=== PATIENT | female | born 1955 | race Caucasian/White ===

== ENCOUNTER → 2017-02-26 | Outpatient (CLI) | payer BC ==
--- NOTE | 2017-02-26 13:04 | XR ---
EXAM TYPE: LUMBAR SPINE X RAY SERIES COMPARISON: NONE HISTORY: Back pain TECHNIQUE: 3 views are submitted. FINDINGS: Alignment is anatomic. The pedicles are intact. The transverse processes are intact. Severe degene rative disc disease L-1 through L5. Multilevel facet arthropathy. Grade 1 anterolisthesis L4 on L5. S light scoliotic curvature. Significant retained fecal debris throughout the colon. Sclerotic density may represent a calcificati on overlying the right sacrum or small bone island. IMPRESSION: 1. Severe multilevel degenerative disc disease with grade 1 anterolisthesis L4 on L5. Correlate with MRI as clinically warranted for canal stenosis.
== END | disposition home or self-care (01) ==
LOC: RADXRMAIN 12:27
PROVIDERS: ATTEND Internal Medicine
DX: M51.36 Other intervertebral disc degeneration, lumbar region (principal)
CPT/HCPCS: 72100

== ENCOUNTER → 2017-09-20 | Outpatient (CLI) | payer BC ==
--- NOTE | 2017-09-20 17:51 | BD ---
EXAMINATION TYPE: MG DEXA axial skeleton. DATE OF EXAM: 09/20/2017 COMPARISON: 03.01.2010 CLINICAL HISTORY: PT IS A 62 YR OLD FEMALE....ICD-10 CODE: M81.0 OSTEOPOROSIS.. Height: 62.3 Weight: 243 FRAX RISK QUESTIONS: Alcohol (3 or more units per day): NO Family History (Parent hip fracture): NO Glucocorticoids (More than 3mos): NO (Ex: prednisone, prednisolone, methylprednisolone, dexamethasone, and hydrocortisone). History of Fracture in Adulthood: NO Secondary Osteoporosis: YES 1. Type 1 Diabetes: NO 2. Hyperthyroidism: NO 3. Menopause before 45: YES 4. Malnutrition: NO 5. Chronic liver disease: NO Rheumatoid Arthritis: NO Current Tobacco Use: NO RISK FACTORS HISTORY OF: Family History of Osteoporosis: NONE KNOWN Active: NOT RIGHT NOW, BACK PROBLEMS Diet low in dairy products/other sources of calcium: YES, DIET RESTRICTIONS Postmenopausal woman: HYST. AT AGE 35 YRS OLD Lost more than 2 inches in height since high school: YES Hyperparathyroidism: NO Adrenal Insufficiency: NO MEDICATIONS: Additional Medications: PROPRANOLOL, CALCIUM AND VIT D, REFLUX, STATIN FOR CHOLESTEROL, Additional History: MIGRAINES, EXAM MEASUREMENTS: Bone mineral densitometry was performed using the [employer] System. Bone mineral density as measured about the Lumbar spine is: ----- L1-L4(G/cm2): 1.177 T Score Values are as follows: ----- L1: 0.3 ----- L2: 0.1 ----- L3: -0.3 ----- L4: -0.3 ----- L1-L4: 0.0 Bone mineral density has: Increased 8.2% since study of: 03.01.2010 Bone mineral density about the R hip (g/cm2): 0.846 Bone mineral density about the L hip (g/cm2): 0.899 T Score values are as follows: -----R Neck: -2.1 -----L Neck: -1.9 -----R Total: -1.3 -----L Total: -0.9 Bone mineral density has: Decreased -4.5% since study of: 03.01.2010 FRAX%'S: THERE IS A 9.2% CHANCE OF A MAJOR OSTEOPOROTIC FX AND A 1.3% OF HIP FX.......PROBABILITY O F FX IN 10 YRS TIME IMPRESSION: Osteopenia (T Score between -2.5 and -1 as noted by T score values There is slightly increased risk of fracture and the patient may be considered for treatment. Re-Screen 2-5 years. NOTE: T-SCORE=SD OF THE YOUNG ADULT MEAN.
--- NOTE | 2017-09-21 12:39 | MM ---
Reason for exam: screening (asymptomatic). Last mammogram was performed 1 year and 6 months ago. History: Patient is postmenopausal and is nulliparous. Benign MG stereo VAD BX LT of the left breast, March 23, 2015. Took estrogen for 1 year. Physical Findings: A clinical breast exam by your physician is recommended on an annual basis and results should be correlated with mammographic findings. MG 3D Screening Mammo W/Cad Bilateral CC and MLO view(s) were taken. Prior study comparison: March 10, 2016, bilateral MG screening mammo w CAD. October 12, 2015, left breast MG 3d diag mammo w/cad LT. The breast tissue is heterogeneously dense. This may lower the sensitivity of mammography. Finding: There are typically benign calcifications in both breasts. There is a chronic nodularity in the right breast, stable. No significant changes in finding since October 12, 2015 and March 10, 2016. ASSESSMENT: Benign, BI-RAD 2 RECOMMENDATION: Routine screening mammogram of both breasts in 1 year.
== END | disposition home or self-care (01) ==
LOC: RADBDWWP 08:42
PROVIDERS: ATTEND Internal Medicine
DX: Z12.31 Encounter for screening mammogram for malignant neoplasm of breast (principal); M85.80 Other specified disorders of bone density and structure, unspecified site
CPT/HCPCS: 77080; 77063; G0202

== ENCOUNTER → 2023-07-05 | Outpatient (CLI) | payer MEDICARE ==
--- NOTE | 2023-07-06 22:59 | MM ---
Reason for Exam: Screening (asymptomatic). Last mammogram was performed 1 year(s) and 7 month(s) ago. Patient History: Menarche at age 13. Patient has no children. Left ovary removed at age 35. Hysterectomy at age 35. Postmenopausal. Patient used Estrogen for 1 year. 03/23/2015, Benign Core Biopsy on the left side. Risk Values: Annia 5 year model risk: 2.1%. NCI Lifetime model risk: 6.3%. Prior Study Comparison: 03/10/2016 Bilateral Screening Mammogram, [facility]. 09/20/2017 Bilateral Screening Mammogram, [facility]. 12/05/2021 Bilateral Screening Mammogram, [facility]. Tissue Density: There are scattered fibroglandular densities. Findings: Analyzed By CAD. Unchanged upper outer quadrant focal asymmetry on the right. Bilateral chronic nodularity redemonstrated. Microclip in the left breast from prior biopsy. There is no suspicious group of microcalcifications or new suspicious mass in either breast. Overall Assessment: Benign, BI-RAD 2 Management: Screening Mammogram of both breasts in 1 year. . Patient should continue monthly self-breast exams. A clinical breast exam by your physician is recommended on an annual basis. This exam should not preclude additional follow-up of suspicious palpable abnormalities. Note on Annia scores and lifetime risk: 1. A Annia score greater than 3% is considered moderate risk. If this is the case, consider specialist referral to assess eligibility for a risk reducing agent. 2. If overall lifetime risk for the development of breast cancer is 20% or higher, the patient may qualify for future screening with alternating mammogram and breast MRI. Electronically signed and approved by: Dashawn Zepeda M.D. Radiologist
== END | disposition home or self-care (01) ==
LOC: RADMAMWWP 16:37
PROVIDERS: ATTEND Internal Medicine
DX: Z12.31 Encounter for screening mammogram for malignant neoplasm of breast (principal); Z78.0 Asymptomatic menopausal state
CPT/HCPCS: 77063; 77067

== ENCOUNTER → 2024-02-15 | Outpatient (CLI) | payer MEDICARE ==
--- NOTE | 2024-02-21 11:57 | BD ---
EXAMINATION TYPE: Axial Bone Density DATE OF EXAM: 02/15/2024 CLINICAL HISTORY: 68 years old Female. ICD-10 CODE: E14120 OSTEO OF RIGHT HIP Height: 61.5 Weight: 243 FRAX RISK QUESTIONS: Secondary Osteoporosis: yes 3. Menopause before 45: yes, at 35 RISK FACTORS HISTORY OF: height loss, MEDICATIONS: bp meds, anti anxiety meds, vit d, calcium, statin for cholesterol, Osteoporosis Medications: yes, fosamax, for about 3 yrs, just recently stopped EXAM MEASUREMENTS: Bone mineral densitometry was performed using the [employer] System. Bone mineral density as measured about the Lumbar spine is: ----- L1-L4(G/cm2): 1.224 T Score Values are as follows: ----- L1: 0.1 ----- L2: 0.5 ----- L3: 0.0 ----- L4: 0.7 ----- L1-L4: 0.4 Z Score Values are as follows: ----- L1: 0.6 ----- L2: 0.9 ----- L3: 0.5 ----- L4: 1.2 ----- L1-L4: 0.9 Bone mineral density has: Decreased -6.4% since study of: 12.05.2021 Bone mineral density about the R hip (g/cm2): 0.845 Bone mineral density about the L hip (g/cm2): 0.867 T Score values are as follows: -----R Neck: -1.9 -----L Neck: -2.4 -----R Total: -1.3 -----L Total: n -1.1 Z Score values are as follows: -----R Neck: -1.0 -----L Neck: -1.5 -----R Total: -0.7 -----L Total: -0.5 Bone mineral density has: Decreased -1.6% since study of: 12.05.2021 FRAX%s: The graph provided illustrates a 11.7% chance for a major osteoporotic fx and a 2.5% chance f or the hips probability for fx in 10 years time. IMPRESSION: Osteopenia (T Score between -2.5 and -1). There is slightly increased risk of fracture and the patient may be considered for treatment. Re-Screen 2-5 years. NOTE: T-SCORE=SD OF THE YOUNG ADULT MEAN.
--- NOTE | 2024-02-21 14:30 | CT ---
EXAMINATION TYPE: CT lumbar spine wo con CT DLP: 1424.2 mGycm, Automated exposure control for dose reduction was used. DATE OF EXAM: 02/15/2024 10:13 AM COMPARISON: . CLINICAL INDICATION:Female, 68 years old with history of M54.50 LOW BACK PAIN UNSPECIFIED; PHH, lower back pain, chronic TECHNIQUE: Multiple axial images were obtained from the midportion of T11 through the sacroiliac kacie nts. Soft tissue and bone windows in coronal and sagittal planes were obtained and reviewed. 3-D ref ormats of the bones were created on a separate workstation and submitted for review. Contrast used: mL of , (None, if empty). Oral contrast used: (None, if empty). FINDINGS: Alignment: There are 5 lumbar type vertebral bodies. Grade 1 anterolisthesis of L4 on L5. Bone: No aggressive bone lesion. Density appears within normal limits. Mild facet hypertrophic cabrera es at multiple levels. Discs: T12-L1: Loss of disc height. No spinal canal or neural foraminal stenosis is identified. L1-L2: Disc osteophyte with right-sided broad-based disc protrusion. No significant spinal canal or neural foraminal stenosis is identified. L2-L3: Disc osteophyte with Diffuse disc bulge No significant spinal canal or neural foraminal steno sis is identified. L3-L4: Mild diffuse disc bulge. No significant spinal canal or neural foraminal stenosis is identifi ed. L4-L5: Anterolisthesis of L4 and L5. Unroofing of the disc and the appearance of the diffuse disc bul ge. No significant spinal canal. Moderate left neural foraminal stenosis. L5-S1: No spinal canal or neural foraminal stenosis is identified. Other: None IMPRESSION: 1. No evidence for spinal fracture. 2. Multilevel degenerative disc disease and 3 levels of diffuse disc bulging without significant spin al canal stenosis. Moderate left neural foraminal stenosis at L4-L5.
== END | disposition home or self-care (01) ==
LOC: RADCTMAIN 09:20
PROVIDERS: ATTEND Internal Medicine
DX: M85.89 Other specified disorders of bone density and structure, multiple sites (principal); M51.36 Other intervertebral disc degeneration, lumbar region; M51.26 Other intervertebral disc displacement, lumbar region; M99.73 Connective tissue and disc stenosis of intervertebral foramina of lumbar region; Z78.0 Asymptomatic menopausal state
CPT/HCPCS: 72131; 77080

== ENCOUNTER → 2024-03-26 | Outpatient (CLI) | payer MEDICARE ==
[2024-03-26 12:35] VITALS: BP 129/74; PULSE 75; RESP 18
--- NOTE | 2024-03-26 15:18 | P.PAINPG ---
PQRS Measure Charge Sheet Comment: HISTORY OF PRESENT ILLNESS: A 68 yr old female as a referral from Dr Dobson presents today w severe and chronic LBP > 1 yr secondary to DDD, spondylosis and facet arthropathy without myelopathy for evaluation. Pt states pain level is provoked at 9 /10 in intensity, constant, localized in the lumbar spine, predominantly axial, sharp in character w occasional shooting pain towards the back of the LEs. Pain is provoked by over activity. Pain is alleviated by PT x 6 wks which ended 1 day ago, physician guided home exercises/ stretches daily starting Mar 2024, heat, medications ([place], Tyl), repositioning and rest . Oswestry axial pain score at 24. PMH: OA, Hyperlipidemia PSH: Breast Biopsy (2014), Hysterectomy (1990), R Knee MM Repair (2001?) SH: Never smoker, Rare ETOH use, No illicit drug use FH: Non contributory All: See list Meds: See list REVIEW OF ORGAN SYSTEMS: CONSTITUTIONAL: No fevers or chills. No recent weight loss. NEUROLOGICAL: + numbness and tingling along the distal extremities. No seizure disorders or headaches. MUSCULOSKELETAL: + pain PSYCHIATRIC: Denies current depression or suicidal thoughts. Physical Examinations : Constitutional : Cooperative , not in acute distress . Neurologic : Cranial nerve II to XII intact. No focal neurological deficits. Psychiatric : alert & oriented x 3. Matching mood & appropriate affect. Judgment & insight intact. Musculoskeletal : Cervical Spine Motor strength in the deltoid and biceps: Normal right side. Normal Left side Motor strength biceps and the wrist extensors: Normal right side . Normal left side Motor strength in the triceps muscle: Normal right side. Normal left side Deep tendon reflexes: Normal at the biceps. Normal at Brachioradialis. Normal at triceps Vertebral body tenderness to deep palpation over Cervical facet loading test: positive bilaterally Spurling test: positive bilaterally Neck distraction test: positive bilaterally Sachi sign: positive bilaterally Lumbar spine Motor strength lower extremities ,thigh and legs 5/5 Right side , 5/5 Left side Deep tendon reflexes : Normal Knee Jerk. Normal Ankle Jerk Vertebral body tenderness over L4 Espinoza Test positive BL L4-L5 Lumbar facet Loading Test: positive Right / positive Left Range of motion of the lumbar spine Flexion 30 degrees, extension 10 degrees Straight Leg Raise test: Left/ Right positive at degrees Shaniqua test: positive right / positive left. Severe tenderness over the Sacroiliac joint on the Right / Left sides Gaenslen test: positive bilaterally Seated flexion test: positive bilaterally. Sacral spine : Severe tenderness over the Sacroiliac joint: right side / left side Range of motion: Flexion of the lumbar spine <60 degrees Range of motion: Extension of the lumbar spine <20 degrees Gaenslen's Test positive Shaniqua test: positive right side / left side Thigh Thrust Test Sacral Thrust Test Imaging: CT non contrast of the lumbar spine from 02/15/24 reviewed Assessment/ Plan : Lumbar DDD Recommendation of MARILOU L4-L5 #1 and medication management. May need a series fo injections for optimal pain relief. Risks, benefits of procedure discussed and patient verbalized understanding. Admits to anti- coagulant use or medical history of diabetes. Protocol for discontinuation/ continuation of medications kenn procedure discussed. Recommendation of medication management. [place] 5/325mg #60 w 1 RF. Use, side effects, adverse reactions, safe storage discussed. Opiate/ narcotic agreement signed 03/26/24. All questions answered. I have spent greater than 30 minutes on patient care today. Dr Echeverria was available by phone for the evaluation of this patient. The time was used to review the medical records including relevant urine studies and Prescription history (MAPs), review of the available imaging, evaluation and examination of the patient, coordination of care with the medical staff and if applicable referring physicians, as well as creation of the medical record - Pain Location Lower Back Non-Pharmacological Interventions: Heat, Home Exercise, Physical Therapy Pharmacological Interventions: PRN Medication, Scheduled Medication Home Medications: Ambulatory Orders HYDROcodone/APAP 5-325MG [[place] 5-325] 1 tab PO BID PRN 30 Days #60 tab 03/26/24 HYDROcodone/APAP 5-325MG [[place] 5-325] 1 tab PO BID PRN 30 Days #60 tab 03/26/24 Controlled Substance Measures - Controlled Substance Measures Is patient prescribed a controlled substance at discharge?: Yes When asked, does pt state using other controlled substances?: No If prescribed controlled substance>3 days was MAPS reviewed?: Yes If Rx opioid, was Start Talking consent form obtained?: Yes Was information provided regarding opioid addiction?: Yes
== END ==
LOC: PNWHC3 11:55
PROVIDERS: ATTEND Specialist
DX: M51.36 Other intervertebral disc degeneration, lumbar region (principal); M47.816 Spondylosis without myelopathy or radiculopathy, lumbar region
CPT/HCPCS: 99211

== ENCOUNTER 2024-04-29 11:23 | Day surgery (SDC) | payer MEDICARE ==
[~2024-04-29 11:23] MED LIST: LACTATED RINGERS 1,000 ML IV SCH
[2024-04-29 11:43] VITALS: RESP 16
[2024-04-29] MEDS ORDERED: IOPAMIDOL M200 10 ML VIAL ONE (12:51)
[2024-04-29] MEDS ORDERED: methylPREDNISolone ACETATE 80 MG/ML 1 ML VIAL ONE (12:51)
--- NOTE | 2024-04-29 13:04 | P.PCN ---
Date of Procedure: 04/29/24 Procedure(s) Performed: PREOPERATIVE DIAGNOSIS: 1- Lumbar Degenerative Disc Diseases 2-Lumbar spondylosis with Facet arthropathy without myelopathy. 3-lumbar spinal stenosis POSTOPERATIVE DIAGNOSIS: 1-lumbar degenerative disc disease. 2-lumbar spondylosis with facet arthropathy without myelopathy. 3-lumbar spinal stenosis. PROCEDURE 1. Lumbar epidural steroid injection under fluoroscopic guidance at the L4-5 level. (Fluoroscopy imaging was available in radiology department) 2. Lumbar epidurogram. ANESTHESIA: Lidocaine 1% 3 and then only. EBL: Minimal PROCEDURE INDICATION: The patient with low back pain and radiculitis symptoms unresponsive to conservative treatment. Fluoroscopy was used to optimize visualization of the needle placement and to maximize safety. PROCEDURE DESCRIPTION / TECHNIQUE: The patient was seen and identified in the preoperative area. Risks, benefits, complications including but not limited to infections ,bleeding ,allergic reaction to the medications ,nerve damage and not complete pain releife , and alternatives were discussed with the patient. The patient agreed to proceed with the procedure and signed the consent, and vital signs were stable. Patient was taken to the OR and time out was completed. The patient was placed in the prone position on procedure table and a pillow was placed under the abdomen to reduce lumbar lordosis. The lumbosacral area was prepped and draped in the usual sterile fashion.ere closely monitored during the procedure. Vital signs was monitered during the entire procedure. Using anterior-posterior fluoroscopy, the L4-5 interlaminar space was identified and the skin over this site was marked and then infiltrated with 1% lidocaine subcutaneously. Subsequently, a 20-gauge Tuohy epidural needle was inserted and advanced toward the epidural space using the ``Loss of resistance technique and guided by AP and lateral fluoroscopy. The correct needle position in the epidural space was verified with the injection of 2 mL of the water soluble contrast dye Isovue 200 contrast and observing an excellent epidurogram with the epidural spread of the dye, after negative aspiration for blood and CSF and in the absence of paresthesias. Again after negative aspiration, a 6 ml mixture containing 60 mg of Depo-medrol ( Preservetive Free ), and 2 ml of preservative free Normal Saline, and 2 ml of preservative free lidocaine 1% solution was injected and a washout of epidurogram was seen. Needle was withdrawn intact, sk in was cleansed, and bandages were applied. COMPLICATIONS: None DISPOSITION / PLANS: The patient was placed in a supine position and transferred to the recovery area in a stable condition for observation. There was no evidence of lower extremity motor or sensory deficit after the procedure. Patient was discharged from the recovery room after meeting discharge criteria. Home discharge instructions were given to the patient by the staff. The patient was reexamined prior to discharge. The patient will schedule a follow up in the clinic in 2-4 weeks.
[2024-04-29 13:21] VITALS: BP 112/78; PULSE 64
--- NOTE | 2024-04-29 15:30 | FL ---
Intraoperative/procedural fluoroscopic services were provided for lumbar pain management. Total fluor oscopy time is 5.7 seconds with a total of 1 submitted image to PACS. Total DAP [id number] mGym2. Mukul hannon see the operative note for further details.
== END 2024-04-29 13:41 | disposition home or self-care (01) ==
LOC: ORPAIN 11:23
PROVIDERS: ATTEND Specialist
DX: M47.816 Spondylosis without myelopathy or radiculopathy, lumbar region (principal); M54.16 Radiculopathy, lumbar region
CPT/HCPCS: 62323; Q9966; J1010

== ENCOUNTER → 2024-05-21 | Outpatient (CLI) | payer MEDICARE ==
[2024-05-21 13:00] VITALS: BP 122/87; PULSE 88; RESP 16
--- NOTE | 2024-05-21 14:48 | P.PAINPG ---
PQRS Measure Charge Sheet Comment: HISTORY OF PRESENT ILLNESS: A 68 yr old female presents today w severe and chronic LBP > 1 yr secondary to DDD, spondylosis and facet arthropathy without myelopathy for evaluation s/p MARILOU L4-L5 #1. Pt states she experienced 90 % pain relief x 3 wks s/p procedure. Pt states pain level is provoked at 3 /10 in intensity, constant, localized in the lumbar spine, predominantly axial, sharp in character w occasional shooting pain towards the back of the LEs. Pain is provoked by over activity. Pain is alleviated by PT x 6 wks which ended 1 day ago, physician guided home exercises/ stretches daily starting Mar 2024, heat, medications, repositioning and rest . Oswestry axial pain score at 21. Interventional procedures include MARILOU L4-L5 x1 (Apr 2024) Medications include [place], Tyl REVIEW OF ORGAN SYSTEMS: CONSTITUTIONAL: No fevers or chills. No recent weight loss. NEUROLOGICAL: + numbness and tingling along the distal extremities. No seizure disorders or headaches. MUSCULOSKELETAL: + pain PSYCHIATRIC: Denies current depression or suicidal thoughts. Physical Examinations : Constitutional : Cooperative , not in acute distress . Neurologic : Cranial nerve II to XII intact. No focal neurological deficits. Psychiatric : alert & oriented x 3. Matching mood & appropriate affect. Judgment & insight intact. Musculoskeletal : Cervical Spine Motor strength in the deltoid and biceps: Normal right side. Normal Left side Motor strength biceps and the wrist extensors: Normal right side . Normal left side Motor strength in the triceps muscle: Normal right side. Normal left side Deep tendon reflexes: Normal at the biceps. Normal at Brachioradialis. Normal at triceps Vertebral body tenderness to deep palpation over Cervical facet loading test: positive bilaterally Spurling test: positive bilaterally Neck distraction test: positive bilaterally Sachi sign: positive bilaterally Lumbar spine Motor strength lower extremities ,thigh and legs 5/5 Right side , 5/5 Left side Deep tendon reflexes : Normal Knee Jerk. Normal Ankle Jerk Vertebral body tenderness over L4 Espinoza Test positive BL L4-L5 Lumbar facet Loading Test: positive Right / positive Left Range of motion of the lumbar spine Flexion 30 degrees, extension 10 degrees Straight Leg Raise test: Left/ Right positive at degrees Shaniqua test: positive right / positive left. Severe tenderness over the Sacroiliac joint on the Right / Left sides Gaenslen test: positive bilaterally Seated flexion test: positive bilaterally. Sacral spine : Severe tenderness over the Sacroiliac joint: right side / left side Range of motion: Flexion of the lumbar spine <60 degrees Range of motion: Extension of the lumbar spine <20 degrees Gaenslen's Test positive Shaniqua test: positive right side / left side Thigh Thrust Test Sacral Thrust Test Imaging: CT non contrast of the lumbar spine from 02/15/24 reviewed Assessment/ Plan : Lumbar DDD Has ample supply of [place] 5/325mg #60 w 1 RF. Use, side effects, adverse reactions, safe storage discussed. Opiate/ narcotic agreement signed 03/26/24. Will manage residual pain and may RTC on an as needed basis. All questions answered. I have spent greater than 30 minutes on patient care today. Dr Echeverria was available by phone for the evaluation of this patient. The time was used to review the medical records including relevant urine studies and Prescription history (MAPs), review of the available imaging, evaluation and examination of the patient, coordination of care with the medical staff and if applicable referring physicians, as well as creation of the medical record - Pain Location Bilateral Lower Back Non-Pharmacological Interventions: Heat, Home Exercise, Physical Therapy, Stretching Pharmacological Interventions: Epidural, PRN Medication, Scheduled Medication PQRS Narrative: Hx Alcohol Use (MH) No Home Medications: Ambulatory Orders HYDROcodone/APAP 5-325MG [[place] 5-325] 1 tab PO BID PRN 30 Days #60 tab 03/26/24 Aspirin 81 mg PO DAILY 04/25/24 Baclofen 10 mg PO BID PRN 04/25/24 Citalopram Hydrobromide [CeleXA] 20 mg PO DAILY 04/25/24 Ezetimibe [Zetia] 10 mg PO DAILY 04/25/24 Furosemide [Lasix] 40 mg PO DAILY 04/25/24 Losartan-Hctz 50-12.5 mg [Hyzaar 50-12.5] 1 tab PO DAILY 04/25/24 Potassium Chloride [Klor-Con M20] 20 meq PO DAILY 04/25/24 Propranolol HCl 20 mg PO DAILY 04/25/24 Rosuvastatin Calcium [Crestor] 40 mg PO DAILY 04/25/24 Controlled Substance Measures - Controlled Substance Measures Is patient prescribed a controlled substance at discharge?: No
== END ==
LOC: PNWHC3 12:29
PROVIDERS: ATTEND Specialist
DX: M51.36 Other intervertebral disc degeneration, lumbar region (principal); M47.816 Spondylosis without myelopathy or radiculopathy, lumbar region
CPT/HCPCS: 99211

== ENCOUNTER → 2024-11-03 | Outpatient (CLI) | payer MEDICARE ==
[2024-11-03 08:59] VITALS: BP 108/77; PULSE 74; RESP 16; TEMP 98.3
--- NOTE | 2024-11-03 15:36 | P.PAINPG ---
PQRS Measure Charge Sheet Comment: HISTORY OF PRESENT ILLNESS: A 69 yr old female presents today w severe and chronic LBP > 1 yr secondary to radiculopathy, spondylosis and facet arthropathy without myelopathy for evaluation. Pt states pain level is provoked at 6 /10 in intensity, constant, localized in the lumbar spine, predominantly axial, sharp in character w occasional shooting pain towards the back of the LEs. Pain is provoked by over activity. Pain is alleviated by PT x 6 wks which ended in Mar 2024, physician guided home exercises/ stretches daily starting Mar 2024, use of a grounding mat, heat, medications, repositioning and rest . Interventional procedures include MARILOU L4-L5 x1 (Apr 2024) Medications include [place], Tyl, [place], ASA REVIEW OF ORGAN SYSTEMS: CONSTITUTIONAL: No fevers or chills. No recent weight loss. NEUROLOGICAL: + numbness and tingling along the distal extremities. No seizure disorders or headaches. MUSCULOSKELETAL: + pain PSYCHIATRIC: Denies current depression or suicidal thoughts. Physical Examinations : Constitutional : Cooperative , not in acute distress . Neurologic : Cranial nerve II to XII intact. No focal neurological deficits. Psychiatric : alert & oriented x 3. Matching mood & appropriate affect. Judgment & insight intact. Musculoskeletal : Cervical Spine Motor strength in the deltoid and biceps: Normal right side. Normal Left side Motor strength biceps and the wrist extensors: Normal right side . Normal left side Motor strength in the triceps muscle: Normal right side. Normal left side Deep tendon reflexes: Normal at the biceps. Normal at Brachioradialis. Normal at triceps Vertebral body tenderness to deep palpation over Cervical facet loading test: positive bilaterally Spurling test: positive bilaterally Neck distraction test: positive bilaterally Sachi sign: positive bilaterally Lumbar spine Motor strength lower extremities ,thigh and legs 5/5 Right side , 5/5 Left side Deep tendon reflexes : Normal Knee Jerk. Normal Ankle Jerk Vertebral body tenderness over L4 Espinoza Test positive BL L4-L5 Lumbar facet Loading Test: positive Right / positive Left Range of motion of the lumbar spine Flexion 30 degrees, extension 10 degrees Straight Leg Raise test: Left/ Right positive at degrees Shaniqua test: positive right / positive left. Severe tenderness over the Sacroiliac j oint on the Right / Left sides Gaenslen test: positive bilaterally Seated flexion test: positive bilaterally. Sacral spine : Severe tenderness over the Sacroiliac joint: right side / left side Range of motion: Flexion of the lumbar spine <60 degrees Range of motion: Extension of the lumbar spine <20 degrees Gaenslen's Test positive Shaniqua test: positive right side / left side Thigh Thrust Test Sacral Thrust Test Imaging: CT non contrast of the lumbar spine from 02/15/24 reviewed Assessment/ Plan : Lumbar radiculopathy Recommendation of MARILOU L4-L5 #2. Risks, benefits of procedure discussed and pt verbalized understanding. Refill [place] 5/325mg #60 NR Use, side effects, adverse reactions, safe storage discussed. Opiate/ narcotic agreement signed 03/26/24. All questions answered. I have spent greater than 30 minutes on patient care today. Dr Echeverria was available by phone for the evaluation of this patient. The time was used to review the medical records including relevant urine studies and Prescription history (MAPs), review of the available imaging, evaluation and examination of the patient, coordination of care with the medical staff and if applicable referring physicians, as well as creation of the medical record PQRS Narrative: Hx Alcohol Use (MH) No Home Medications: Ambulatory Orders Aspirin 81 mg PO DAILY 04/25/24 Citalopram Hydrobromide [CeleXA] 20 mg PO DAILY 04/25/24 Ezetimibe [Zetia] 10 mg PO DAILY 04/25/24 Furosemide [Lasix] 40 mg PO DAILY 04/25/24 Losartan-Hctz 50-12.5 mg [Hyzaar 50-12.5] 1 tab PO DAILY 04/25/24 Potassium Chloride [Klor-Con M20] 20 meq PO DAILY 04/25/24 Propranolol HCl 20 mg PO DAILY 04/25/24 Rosuvastatin Calcium [Crestor] 40 mg PO DAILY 04/25/24 HYDROcodone/APAP 5-325MG [[place] 5-325] 1 tab PO BID PRN 30 Days #60 tab 11/03/24 rOPINIRole HCL [Requip] 0.25 mg PO HS 11/03/24 Controlled Substance Measures - Controlled Substance Measures Is patient prescribed a controlled substance at discharge?: Yes When asked, does pt state using other controlled substances?: No If prescribed controlled substance>3 days was MAPS reviewed?: Yes
== END ==
LOC: PNWHC3 08:10
PROVIDERS: ATTEND Specialist
DX: M54.16 Radiculopathy, lumbar region (principal)
CPT/HCPCS: 99211

== ENCOUNTER → 2024-11-18 | Day surgery (SDC) | payer MEDICARE ==
[~2024-11-18] MED LIST changes: +IOPAMIDOL M200 10 ML VIAL ONE; +methylPREDNISolone ACETATE 80 MG/ML 1 ML VIAL ONE
[2024-11-18 07:36] VITALS: RESP 16; TEMP 98.2
--- NOTE | 2024-11-18 08:26 | P.PCN ---
Date of Procedure: 11/18/24 Procedure(s) Performed: PREOPERATIVE DIAGNOSIS: 1- Lumbar Degenerative Disc Diseases 2-Lumbar spondylosis with Facet arthropathy without myelopathy. 3-lumbar spinal stenosis POSTOPERATIVE DIAGNOSIS: 1-lumbar degenerative disc disease. 2-lumbar spondylosis with facet arthropathy without myelopathy. 3-lumbar spinal stenosis. PROCEDURE 1. Lumbar epidural steroid injection under fluoroscopic guidance at the L4-5 level. (Fluoroscopy imaging was available in radiology department) 2. Lumbar epidurogram. ANESTHESIA: Lidocaine 1% 3 and then only. EBL: Minimal PROCEDURE INDICATION: The patient with low back pain and radiculitis symptoms unresponsive to conservative treatment. Fluoroscopy was used to optimize visualization of the needle placement and to maximize safety. PROCEDURE DESCRIPTION / TECHNIQUE: The patient was seen and identified in the preoperative area. Risks, benefits, complications including but not limited to infections ,bleeding ,allergic reaction to the medications ,nerve damage and not complete pain releife , and alternatives were discussed with the patient. The patient agreed to proceed with the procedure and signed the consent, and vital signs were stable. Patient was taken to the OR and time out was completed. The patient was placed in the prone position on procedure table and a pillow was placed under the abdomen to reduce lumbar lordosis. The lumbosacral area was prepped and draped in the usual sterile fashion.ere closely monitored during the procedure. Vital signs was monitered during the entire procedure. Using anterior-posterior fluoroscopy, the L4-5 interlaminar space was identified and the skin over this site was marked and then infiltrated with 1% lidocaine subcutaneously. Subsequently, a 20-gauge Tuohy epidural needle was inserted and advanced toward the epidural space using the ``Loss of resistance technique and guided by AP and lateral fluoroscopy. The correct needle position in the epidural space was verified with the injection of 2 mL of the water soluble contrast dye Isovue 200 contrast and observing an excellent epidurogram with the epidural spread of the dye, after negative aspiration for blood and CSF and in the absence of paresthesias. Again after negative aspiration, a 6 ml mixture containing 60 mg of Depo-medrol ( Preservetive Free ), and 2 ml of preservative free Normal Saline, and 2 ml of preservative free lidocaine 1% solution was injected and a washout of epidurogram was seen. Needle was withdrawn intact, ski n was cleansed, and bandages were applied. COMPLICATIONS: None DISPOSITION / PLANS: The patient was placed in a supine position and transferred to the recovery area in a stable condition for observation. There was no evidence of lower extremity motor or sensory deficit after the procedure. Patient was discharged from the recovery room after meeting discharge criteria. Home discharge instructions were given to the patient by the staff. The patient was reexamined prior to discharge. The patient will schedule a follow up in the clinic in 2-4 weeks.
--- NOTE | 2024-11-18 08:42 | FL ---
Intraoperative/procedural fluoroscopic services were provided for lumbar epidural steroid injection. Total fluoroscopy time is 3.0 seconds with a total of 2 submitted images to PACS. Total DAP 0.99950 m Gym2. Please see the operative note for further details. [facility], , 11/18/2024 8:39 AM
[2024-11-18 08:46] VITALS: BP 105/72; PULSE 70
== END ==
LOC: ORPAIN 07:21
PROVIDERS: ATTEND Specialist
DX: M48.061 Spinal stenosis, lumbar region without neurogenic claudication (principal); M47.816 Spondylosis without myelopathy or radiculopathy, lumbar region; M51.360 Other intervertebral disc degeneration, lumbar region with discogenic back pain only
CPT/HCPCS: 62323

== ENCOUNTER → 2025-02-18 | Outpatient (CLI) | payer MEDICARE ==
[2025-02-18 09:21] VITALS: BP 126/85; PULSE 76; RESP 19; TEMP 97.5
--- NOTE | 2025-02-18 16:48 | P.PAINPG ---
PQRS Measure Charge Sheet Comment: HISTORY OF PRESENT ILLNESS: A 69 yr old female presents today w severe and chronic LBP > 1 yr secondary to radiculopathy, spondylosis and facet arthropathy without myelopathy for evaluation . Pt states pain level is provoked at 6 /10 in intensity, constant, localized in the lumbar spine, predominantly axial, sharp in character w occasional shooting pain towards the back of the LEs. Pain is provoked by over activity. Pain is alleviated by PT x 6 wks which ended in Mar 2024, physician guided home exercises/ stretches daily starting Mar 2024, use of a grounding mat, heat, medications, repositioning and rest . Interventional procedures include MARILOU L4-L5 x2 (Apr 2024, 11/15) Medications include [place], Tyl, Ibu, ASA REVIEW OF ORGAN SYSTEMS: CONSTITUTIONAL: No fevers or chills. No recent weight loss. NEUROLOGICAL: + numbness and tingling along the distal ex tremities. No seizure disorders or headaches. MUSCULOSKELETAL: + pain PSYCHIATRIC: Denies current depression or suicidal thoughts. Physical Examinations : Constitutional : Cooperative , not in acute distress . Neurologic : Cranial nerve II to XII intact. No focal neurological deficits. Psychiatric : alert & oriented x 3. Matching mood & appropriate affect. Judgment & insight intact. Musculoskeletal : Cervical Spine Motor strength in the deltoid and biceps: Normal right side. Normal Left side Motor strength biceps and the wrist extensors: Normal right side . Normal left side Motor strength in the triceps muscle: Normal right side. Normal left side Deep tendon reflexes: Normal at the biceps. Normal at Brachioradialis. Normal at triceps Vertebral body tenderness to deep palpation over Cervical facet loading test: positive bilaterally Spurling test: positive bilaterally Neck distraction test: positive bilaterally Sachi sign: positive bilaterally Lumbar spine Motor strength lower extremities ,thigh and legs 5/5 Right side , 5/5 Left side Deep tendon reflexes : Normal Knee Jerk. Normal Ankle Jerk Vertebral body tenderness over L4 Espinoza Test positive BL L4-L5 Lumbar facet Loading Test: positive Right / positive Left Range of motion of the lumbar spine Flexion 30 degrees, extension 10 degrees Straight Leg Raise test: Left/ Right positive at degrees Shaniqua test: positive right / positive left. Severe tenderness over the Sacroiliac joint on the Right / Left sides Gaenslen test: positive bilaterally Seated flexion test: positive bilaterally. Sacral spine : Severe tenderness over the Sacroiliac joint: right side / left side Range of motion: Flexion of the lumbar spine <60 degrees Range of motion: Extension of the lumbar spine <20 degrees Gaenslen's Test positive Shaniqua test: positive right side / left side Thigh Thrust Test Sacral Thrust Test Imaging: CT non contrast of the lumbar spine from 02/15/24 reviewed Assessment/ Plan : Lumbar radiculopathy Recommendation of medication management. UDS collected 02/18/25. Opiate/ narcotic agreement signed 03/26/24. [place] 5/325mg #60 w 1 RF. Use, side effects, adverse reactions, safe storage discussed. All questions answered. I have spent greater than 30 minutes on patient care today. Dr Echeverria was available by phone for the evaluation of this patient. The time was used to review the medical records including relevant urine studies and Prescription history (MAPs), review of the available imaging, evaluation and examination of the patient, coordination of care with the medical staff and if applicable referring physicians, as well as creation of the medical record - Pain Location Lower Back Pharmacological Interventions: Epidural, PRN Medication PQRS Narrative: Narcotic Agreement Date Signed 03/26/24 Hx Alcohol Use (MH) No Home Medications: Ambulatory Orders Aspirin 81 mg PO DAILY 04/25/24 Citalopram Hydrobromide [CeleXA] 20 mg PO DAILY 04/25/24 Ezetimibe [Zetia] 10 mg PO DAILY 04/25/24 Furosemide [Lasix] 40 mg PO DAILY 04/25/24 Losartan-Hctz 50-12.5 mg [Hyzaar 50-12.5] 1 tab PO DAILY 04/25/24 Potassium Chloride [Klor-Con M20] 20 meq PO DAILY 04/25/24 Propranolol HCl 20 mg PO DAILY 04/25/24 Rosuvastatin Calcium [Crestor] 40 mg PO DAILY 04/25/24 rOPINIRole HCL [Requip] 0.25 mg PO HS 11/03/24 Ibuprofen [Advil] 200 - 400 mg PO Q6HR PRN 11/14/24 HYDROcodone/APAP 5-325MG [[place] 5-325] 1 tab PO BID PRN 30 Days #60 tab 02/18/25 HYDROcodone/APAP 5-325MG [[place] 5-325] 1 tab PO BID PRN 30 Days #60 tab 04/30/25 Controlled Substance Measures - Controlled Substance Measures Is patient prescribed a controlled substance at discharge?: Yes When asked, does pt state using other controlled substances?: No If prescribed controlled substance>3 days was MAPS reviewed?: Yes
== END ==
LOC: PNWHC3 08:50
PROVIDERS: ATTEND Specialist
DX: M47.26 Other spondylosis with radiculopathy, lumbar region (principal)
CPT/HCPCS: 80307; 99211

== ENCOUNTER → 2025-04-15 | Outpatient (CLI) | payer MEDICARE ==
[2025-04-15 09:16] VITALS: BP 115/79; PULSE 79; RESP 17
--- NOTE | 2025-04-15 16:13 | P.PAINPG ---
PQRS Measure Charge Sheet Comment: HISTORY OF PRESENT ILLNESS: A 69 yr old female presents today w severe and chronic LBP > 1 yr secondary to radiculopathy, spondylosis and facet arthropathy without myelopathy for medication refills. Pt states pain level is provoked at 6 /10 in intensity, constant, localized in the lumbar spine, predominantly axial, sharp in character w occasional shooting pain towards the back of the LEs. Pain is provoked by over activity. Pain is alleviated by PT x 6 wks which ended in Mar 2024, physician guided home exercises/ stretches daily starting Mar 2024, use of a grounding mat, heat, medications, repositioning and rest . Interventional procedures include MARILOU L4-L5 x2 (05/14, 11/15) Medications include [place] 5/325mg #60, Tyl, Ibu, ASA REVIEW OF ORGAN SYSTEMS: CONSTITUTIONAL: No fevers or chills. No recent weight loss. NEUROLOGICAL: + numbness and tingling along the distal extremities. No seizure disorders or headaches. MUSCULOSKELETAL: + pain PSYCHIATRIC: Denies current depression or suicidal thoughts. Physical Examinations : Constitutional : Cooperative , not in acute distress . Neurologic : Cranial nerve II to XII intact. No focal neurological deficits. Psychiatric : alert & oriented x 3. Matching mood & appropriate affect. Judgment & insight intact. Musculoskeletal : Cervical Spine Motor strength in the deltoid and biceps: Normal right side. Normal Left side Motor strength biceps and the wrist extensors: Normal right side . Normal left side Motor strength in the triceps muscle: Normal right side. Normal left side Deep tendon reflexes: Normal at the biceps. Normal at Brachioradialis. Normal at triceps Vertebral body tenderness to deep palpation over Cervical facet loading test: positive bilaterally Spurling test: positive bilaterally Neck distraction test: positive bilaterally Sachi sign: positive bilaterally Lumbar spine Motor strength lower extremities ,thigh and legs 5/5 Right side , 5/5 Left side Deep tendon reflexes : Normal Knee Jerk. Normal Ankle Jerk Vertebral body tenderness over L4 Espinoza Test positive BL L4-L5 Lumbar facet Loading Test: positive Right / positive Left Range of motion of the lumbar spine Flexion 30 degrees, extension 10 degrees Straight Leg Raise test: Left/ Right positive at <40 degrees Shaniqua test: positive right / positive left. Severe tenderness over the Sacroiliac joint on the Right / Left sides Gaenslen test: positive bilaterally Seated flexion test: positive bilaterally. Sacral spine : Severe tenderness over the Sacroiliac joint: right side / left side Range of motion: Flexion of the lumbar spine <60 degrees Range of motion: Extension of the lumbar spine <20 degrees Gaenslen's Test positive Shaniqua test: positive right side / left side Thigh Thrust Test Sacral Thrust Test Imaging: CT non contrast of the lumbar spine from 02/15/24 reviewed Assessment/ Plan : Lumbar radiculopathy Recommendation of MARILOU L4-L5 #1 and medication management. Risks, benefits of procedure discussed and pt verbalized understanding. Protocol for discontinuation/ continuation of medications kenn procedure discussed. UDS 02/18/25 reviewed and consistent. Opiate/ narcotic agreement signed 03/26/24. [place] 5/325mg #60 w 1 RF. Use, side effects, adverse reactions, safe storage discussed. All questions answered. I have spent greater than 30 minutes on patient care today. Dr Echeverria was available by phone for the evaluation of this patient. The time was used to review the medical records including relevant urine studies and Prescription history (MAPs), review of the available imaging, evaluation and examination of the patient, coordination of care with the medical staff and if applicable referring physicians, as well as creation of the medical record - Pain Location Lower Back Pharmacological Interventions: Epidural, Medication PQRS Narrative: Narcotic Agreement Date Signed 03/26/24 Hx Alcohol Use (MH) No Home Medications: Ambulatory Orders Aspirin 81 mg PO DAILY 04/25/24 Citalopram Hydrobromide [CeleXA] 20 mg PO DAILY 04/25/24 Ezetimibe [Zetia] 10 mg PO DAILY 04/25/24 Furosemide [Lasix] 40 mg PO DAILY 04/25/24 Losartan-Hctz 50-12.5 mg [Hyzaar 50-12.5] 1 tab PO DAILY 04/25/24 Potassium Chloride [Klor-Con M20] 20 meq PO DAILY 04/25/24 Propranolol HCl 20 mg PO DAILY 04/25/24 Rosuvastatin Calcium [Crestor] 40 mg PO DAILY 04/25/24 rOPINIRole HCL [Requip] 0.25 mg PO HS 11/03/24 Ibuprofen [Advil] 200 - 400 mg PO Q6HR PRN 11/14/24 HYDROcodone/APAP 5-325MG [[place] 5-325] 1 tab PO BID PRN 30 Days #60 tab 04/15/25 HYDROcodone/APAP 5-325MG [[place] 5-325] 1 tab PO BID PRN 30 Days #60 tab 04/15/25 Controlled Substance Measures - Controlled Substance Measures Is patient prescribed a controlled substance at discharge?: Yes When asked, does pt state using other controlled substances?: No If prescribed controlled substance>3 days was MAPS reviewed?: Yes
== END ==
LOC: PNWHC3 08:46
PROVIDERS: ATTEND Specialist
DX: M47.26 Other spondylosis with radiculopathy, lumbar region (principal)
CPT/HCPCS: 99212

== ENCOUNTER 2025-05-06 13:36 | Emergency (ER) | payer MEDICARE ==
--- NOTE | 2025-05-06 14:14 | ED ---
Animal Bite HPI - General Chief Complaint: Animal Bite Stated Complaint: Dog bite Time Seen by Provider: 05/06/25 14:11 Source: patient, RN notes reviewed Mode of arrival: ambulatory Limitations: no limitations - History of Present Illness Initial Comments: 69-year-old female with presenting for dog bite to right hand 1.5 hours ago. States her dog met her sister's dog today and began to attack her, therefore patient tried to break up the fight and the dog accidentally bit her right hand. States she has a cut on her right distal second finger as well as to the right forearm. Last tetanus unknown. Full range of motion of all digits, wrist, and forearm. Dog is up-to-date on all vaccines. - Related Data Home Medications Medication Instructions Recorded Confirmed Aspirin 81 mg PO DAILY 04/25/24 05/05/25 Citalopram Hydrobromide [CeleXA] 20 mg PO DAILY 04/25/24 05/05/25 Ezetimibe [Zetia] 10 mg PO DAILY 04/25/24 05/05/25 Furosemide [Lasix] 40 mg PO DAILY 04/25/24 05/05/25 Losartan-Hctz 50-12.5 mg [Hyzaar 1 tab PO DAILY 04/25/24 05/05/25 50-12.5] Potassium Chloride [Klor-Con M20] 20 meq PO DAILY 04/25/24 05/05/25 Propranolol HCl 20 mg PO DAILY 04/25/24 05/05/25 Rosuvastatin Calcium [Crestor] 40 mg PO DAILY 04/25/24 05/05/25 rOPINIRole HCL [Requip] 0.25 mg PO HS 11/03/24 05/05/25 Ibuprofen [Advil] 200 - 400 mg PO Q6HR PRN 11/14/24 05/05/25 Previous Rx's Medication Instructions Recorded HYDROcodone/APAP 5-325MG [[place] 1 tab PO BID PRN 30 Days #60 tab 04/15/25 5-325] Amoxic-Pot Clav 875-125Mg 1 tab PO Q12HR 7 Days #14 tab 05/06/25 [Augmentin 875-125] Allergies Allergy/AdvReac Type Severity Reaction Status Date / Time No Known Allergies Allergy Verified 05/06/25 13:39 Review of Systems ROS Statement: Those systems with pertinent positive or pertinent negative responses have been documented in the HPI. ROS Other: All systems not noted in ROS Statement are negative. Past Medical History Past Medical History: GERD/Reflux, Hyperlipidemia, Hypertension, Osteoarthritis (OA) Additional Past Medical History / Comment(s): edema lower extremities. "Enlarged thyroid." History of Any Multi-Drug Resistant Organisms: None Reported Past Surgical History: Hysterectomy, Orthopedic Surgery Additional Past Surgical History / Comment(s): arthroscopic right knee, pain clinic procedures Past Anesthesia/Blood Transfusion Reactions: No Reported Reaction, Motion Sickness Additional Past Anesthesia/Blood Transfusion Reaction / Comment(s): No hx of blood transfusion to date. Past Psychological History: Anxiety Smoking Status: Never smoker - Past Family History Father Family Medical History: No Reported History General Exam Limitations: no limitations General appearance: alert, in no apparent distress Head exam: Present: atraumatic, normocephalic, normal inspection Right Elbow exam: Present: normal inspection, full ROM. Absent: tenderness, swelling Forearm Wrist exam: Present: full ROM. Absent: normal inspection (There is a superficial abrasion to the right forearm with no active bleeding), tenderness, swelling Hand Wrist exam: Present: full ROM, tenderness, swelling, laceration. Absent: normal inspection (There is a 4 cm curved laceration of 4th digit just proximal to the nail. Full range of motion of the DIP joint), abrasion, deformity Vascular: Present: normal capillary refill, radial pulse. Absent: vascular compromise Neurological exam: Present: alert, oriented X3 Psychiatric exam: Present: normal affect, normal mood Skin exam: Present: warm, dry, intact, normal color. Absent: rash Course Vital Signs 05/06/25 05/06/25 05/06/25 13:37 16:42 18:41 Temperature 98.7 F 98.0 F Pulse Rate 119 H 89 86 Respiratory 16 16 20 Rate Blood Pressure 144/81 136/81 125/73 O2 Sat by Pulse 96 99 99 Oximetry Procedures - Laceration Laceration #1 Consent Obtained: verbal consent Indication: laceration Site: hand Size (cm): 4 Description: irregular Depth: simple, single layer Anesthetic Used: lidocaine 1%, without epi Anesthesia Technique: nerve block Amount (mls): 3 Pre-repair: wound explored, irrigated extensively, deep structures intact Type of Sutures: nylon Size of Sutures: 5-0 Number of Sutures: 3 Technique: simple, interrupted Patient Tolerated Procedure: well, no complications Additional Comments: Neurovascular intact status post sutures Medical Decision Making - Medical Decision Making Was pt. sent in by a medical professional or institution ([facility], [facility], urgent care, hospital, or shelter...) When possible be specific @ -No Did you speak to anyone other than the patient for history (EMS, parent, family, police, friend...)? What history was obtained from this source @ -No Did you review nursing and triage notes (agree or disagree)? Why? @ -I reviewed and agree with nursing and triage notes Were old charts reviewed (outside hosp., previous admission, EMS record, old EKG, old radiological studies, urgent care reports/EKG's, shelter records)? Report findings @ -No old charts were reviewed Differential Diagnosis (chest pain, altered mental status, abdominal pain women, abdominal pain men, vaginal bleeding, weakness, fever, dyspnea, syncope, headache, dizziness, GI bleed, back pain, seizure, CVA, palpatations, mental health, musculoskeletal)? @ -Differential Musculoskeletal Muscular strain, contusion, ligament sprain, fracture, arthritis, septic arthritis, bursitis, cellulitis, muscle spasm, nerve compression, DVT, arterial occlusion, herpes zoster, electrolyte abnormality, tumor.... This is not meant to be in all inclusive list EKG interpreted by me (3pts min.). @ -None X-rays interpreted by me (1pt min.). @ -X-ray right hand reveals mildly displaced fourth digit distal tuft fracture with dorsal displacement CT interpreted by me (1pt min.). @ -None done U/S interpreted by me (1pt. min.). @ -None done What testing was considered but not performed or refused? (CT, X-rays, U/S, labs)? Why? @ -None What meds were considered but not given or refused? Why? @ -None Did you discuss the management of the patient with other professionals (professionals i.e. [facility], [facility], lab, RT, psych nurse, health and social care teacher, manager immunology, teacher, operational intelligence officer, immigration case manager)? Give summary @ -I spoke with Judith from [facility] who evaluates patient in the ER and decides that patient does not need to go to the OR for irrigation at this time and can follow-up in the office on Sunday. Recommended soaking the finger in chlorhexidine/sterile water and performing 2-3 loose approximation sutures Was smoking cessation discussed for >3mins.? @ -No Was critical care preformed (if so, how long)? @ -No Were there social determinants of health that impacted care today? How? (Homelessness, low income, unemployed, alcoholism, drug addiction, transportation, low edu. Level, literacy, decrease access to med. care, shelter, rehab)? @ -No Was there de-escalation of care discussed even if they declined (Discuss DNR or withdrawal of care, Hospice)? DNR status @ -No What co-morbidities impacted this encounter? (DM, HTN, Smoking, COPD, CAD, Ca ncer, CVA, ARF, Chemo, Hep., AIDS, mental health diagnosis, sleep apnea, morbid obesity)? @ -None Was patient admitted / discharged? Hospital course, mention meds given and route, prescriptions, significant lab abnormalities, going to OR and other pertinent info. @ -Discharge. 6-year-old female presenting for dog bite to right hand. Dog is fully vaccinated. Tetanus was updated. X-ray right hand reveals mildly displaced fourth digit distal tuft fracture with dorsal displacement. Patient was given dose of IV Unasyn. I spoke with Judith from [facility] who evaluates patient in the ER and decides that patient does not need to go to the OR for irrigation at this time and can follow-up in the office on Sunday. Recommended soaking the finger in chlorhexidine/sterile water and performing 2-3 loose approximation sutures. Both wounds were thoroughly cleaned. Procedure performed with no complications. Finger splint applied. Prescribed course of Augmentin and advised to follow-up with orthopedics. Appropriate return precautions and supportive care discussed. Case was discussed with my ED attending Dr. Hidalgo. Undiagnosed new problem with uncertain prognosis? @ -No Drug Therapy requiring intensive monitoring for toxicity (Heparin, Nitro, Insulin, Cardizem)? @ -No Were any procedures done? @ -Yes, loose approximation sutures performed to right finger Diagnosis/symptom? @ -Dog bite, open fracture of right finger Acute, or Chronic, or Acute on Chronic? @ -Acute Uncomplicated (without systemic symptoms) or Complicated (systemic symptoms)? @ -Uncomplicated Side effects of treatment? @ -No Exacerbation, Progression, or Severe Exacerbation? @ -No Poses a threat to life or bodily function? How? (Chest pain, [place], [place], pneumonia, PE, COPD, DKA, ARF, appy, cholecystitis, CVA, Diverticulitis, Homicidal, Suicidal, threat to staff... and all critical care pts) @ -Not at this time Disposition Clinical Impression: Dog bite, Open fracture of finger of right hand Disposition: HOME SELF-CARE Instructions (If sedation given, give patient instructions): Animal Bite (ED) Additional Instructions: Keep wound dry for the first 24 to 48 hours. Take Augmentin as prescribed. Follow-up with orthopedics on Sunday as discussed. Please return to the Emergency Department if symptoms worsen or any other concerns. Prescriptions: Amoxic-Pot Clav 875-125Mg [Augmentin 875-125] 1 tab PO Q12HR 7 Days #14 tab Is patient prescribed a controlled substance at d/c from ED?: No Referrals: Claribel Dobson MD [Primary Care Provider] - 1-2 days Jered Palacios MD [STAFF PHYSICIAN] - 1-2 days Time of Disposition: 18:17
[2025-05-06] MEDS: LIDOCAINE 1% INJ 10MG/ML (20 ML MDV) SQ ONE (14:20)
[2025-05-06] MEDS: DIPH,PERTUS(ACELL)TETVAC-LF 0.5 ML VIAL IM ONE (14:21)
--- NOTE | 2025-05-06 14:48 | XR ---
EXAMINATION TYPE: XR hand complete RT DATE OF EXAM: 05/06/2025 2:35 PM COMPARISON: None CLINICAL INDICATION: Female, 69 years old with history of right finger dog bite; PHH, pain TECHNIQUE: XR hand complete RT 3 views were obtained. FINDINGS: Normal alignment of the visualized joints. No there is acute fracture of the fourth digit distal phalanx with posterior displacement up to 2 mm. Multifocal degeneration changes with joint spa ce narrowing and osteophyte formation. No radiopaque foreign body. There is soft tissue swelling of t he fourth digit. IMPRESSION: 1. Acute mildly displaced fourth digit distal phalanx tuft fracture with dorsal displacement. Associ ated Soft tissue swelling of the ring finger. 2. No acute osseous pathology. 3. Mild osteoarthrosis throughout the joints of the hand. [facility], , 05/06/2025 2:46 PM
[2025-05-06] MEDS: AMPICILLIN-SULBACTAM 3 GM in SODIUM CHLORIDE 0.9% 100 ML IVPB STA (15:13)
[2025-05-06 18:42] VITALS: BP 125/73; PULSE 86; RESP 20; TEMP 98
== END 2025-05-06 18:43 | disposition home or self-care (01) ==
LOC: EC 13:36
DX: S62.635B Displaced fracture of distal phalanx of left ring finger, initial encounter for open fracture (principal); Z23 Encounter for immunization; W54.0XXA Bitten by dog, initial encounter
CPT/HCPCS: 73130; 90715; 99283; 12002; 96365; 90471; J2003; J0295